=== PATIENT | female | born 1940 | race Caucasian/White ===

== ENCOUNTER 2017-06-28 09:04 | Inpatient (IN) | payer MEDICARE ==
[2017-06-28 09:06] VITALS: BP 87/60; PULSE 128; RESP 14; TEMP 97.5; O2SAT 98
[2017-06-28 09:13] VITALS: BP 136/77; PULSE 120; RESP 13; TEMP 97.4; O2SAT 97
[2017-06-28] MEDS ORDERED: OXYC1CAP PO (09:21)
[2017-06-28] MEDS ORDERED: SODIUM CHLOR 0.9% 1000 ML INJ 1,000 ML IV SCH (09:28)
[2017-06-28] MEDS ORDERED: SODIUM CHLORIDE 0.9% FLUSH 10 ML FLUSH IV FLUSH PRN (09:30)
[2017-06-28] MEDS ORDERED: FAMOTIDINE 20 MG/2 ML VIAL IV PUSH ONE (09:30)
[2017-06-28] MEDS ORDERED: ONDANSETRON HCL 4 MG/2 ML VIAL IVP ONE (09:30)
--- NOTE | 2017-06-28 09:41 | PD ---
HPI Chief Complaint: GI Complaint Time Seen by Provider: 09:19 Travel History International Travel<30 days: No Contact w/Intl Traveler<30days: No Traveled to known affect area: No History of Present Illness HPI Patient is a 76-year-old female who presents to emergency room with complaints of nausea, vomiting and diarrhea as well as lower abdominal pain since week. Patient reports that for the past week, she has been unable to eat or drink, reports that she feels weak. Patient did follow-up with her primary care doctor , Dr. Jessica Vaughn and was instructed to go for outpatient studying including lab work and CT of the abdomen and pelvis with contrast. Patient has not gone for outpatient studies yet. Patient's family who is at bedside reports that they went to check up on patient last night and patient appeared to be frail and has also appeared to have lost alot of weight. Daughter did attempt to give patient some pedialyte last night which she was able to keep down. Patient does live at home by herself, family reports concern as patient is stubborn and will not give full history and will not be honest about how she is feeling. Patient denies any chest pain or shortness breath at this time. Patient denies any fevers or chills. Patient did have history of uterine cancer with hysterectomy in 1986. PFSH Past Medical History Cancer: Yes (UTERINE) Hypertension: Yes Past Surgical History Hysterectomy: Yes Social History Alcohol Use: No Tobacco Use: No Substance Use: No Allergies-Medications (Allergen,Severity, Reaction): Coded Allergies: meperidine (Verified Allergy, Unknown, 06/28/17) Reported Meds & Prescriptions Reported Meds & Active Scripts Active Reported Oxycodone (Oxycodone HCl) 5 Mg Cap 5 Mg PO Q4H PRN Review of Systems General / Constitutional: No: Fever Eyes: No: Visual changes HENT: No: Headaches Cardiovascular: No: Chest Pain or Discomfort Respiratory: No: Shortness of Breath Gastrointestinal: Positive: Nausea, Vomiting, Diarrhea, Abdominal Pain Genitourinary: No: Dysuria Musculoskeletal: No: Pain Skin: No Rash Neurologic: No: Weakness Psychiatric: No: Depression Endocrine: No: Polydipsia Hematologic/Lymphatic: No: Easy Bruising Physical Exam Narrative GENERAL: moderate distress SKIN: Focused skin assessment warm/dry. HEAD: Atraumatic. Normocephalic. EYES: Pupils equal and round. No scleral icterus. No injection or drainage. ENT: No nasal bleeding or discharge. Mucous membranes pink and moist. NECK: Trachea midline. No JVD. CARDIOVASCULAR: Tachycardia. No murmur appreciated. RESPIRATORY: No accessory muscle use. Clear to auscultation. Breath sounds equal bilaterally. GASTROINTESTINAL: Abdomen soft, non-tender, nondistended. Hepatic and splenic margins not palpable. MUSCULOSKELETAL: No obvious deformities. No clubbing. No cyanosis. No edema. NEUROLOGICAL: Awake and alert. No obvious cranial nerve deficits. Motor grossly within normal limits. Normal speech. PSYCHIATRIC: Flat mood and affect; insight and judgment normal. Data Data Last Documented VS Vital Signs Date Time Temp Pulse Resp B/P (MAP) Pulse Ox O2 Delivery O2 Flow Rate FiO2 06/28/17 10:26 98 Room Air 06/28/17 09:13 97.4 120 13 Orders Orders Complete Blood Count With Diff (06/28/17:28) Comprehensive Metabolic Panel (06/28/17:) Lipase (06/28/17:28) Prothrombin Time / Inr (Pt) (06/28/17:28) Act Partial Throm Time (Ptt) (06/28/17:28) Urinalysis - C+S If Indicated (06/28/17:) Iv Access Insert/Monitor (06/28/17:28) Ecg Monitoring (06/28/17:28) Oximetry (06/28/17:28) NPO (06/28/17:28) Ondansetron Inj (Zofran Inj) (06/28/17 09:30) Sodium Chlor 0.9% 1000 Ml Inj (Ns 1000 M (06/28/17 09:28) Sodium Chloride 0.9% Flush (Ns Flush) (06/28/17 09:30) Electrocardiogram (06/28/17:28) Chest, Single Ap (06/28/17:28) Famotidine Inj (Pepcid Inj) (06/28/17 09:30) Sodium Chlor 0.9% 1000 Ml Inj (Ns 1000 M (06/28/17 11:30) Vancomycin Inj (Vancomycin Inj) (06/28/17 11:25) Aztreonam Inj (Azactam Inj) (06/28/17 11:25) Metronidazole 500 Mg Inj (Flagyl 500 Mg (06/28/17 11:25) Lactic Acid Sepsis Protocol (06/28/17 11:26) Blood Culture (06/28/17 11:26) Vascular Access Team Consult/P PRN (06/28/17 11:49) Vascular Poc Ultrasound (06/28/17 ) Ct Abd/Pel W/O Iv Contrast (06/28/17 13:22) Urine Culture (06/28/17 14:40) Admit Order (Ed Use Only) (06/28/17 15:14) Labs Laboratory Tests Test 06/28/17 09:40 06/28/17 11:40 06/28/17 14:40 White Blood Count 23.6 TH/MM3 Red Blood Count 5.63 MIL/MM3 Hemoglobin 15.9 GM/DL Hematocrit 48.2 % Mean Corpuscular Volume 85.7 FL Mean Corpuscular Hemoglobin 28.3 PG Mean Corpuscular Hemoglobin Concent 33.0 % Red Cell Distribution Width 15.0 % Platelet Count 430 TH/MM3 Mean Platelet Volume 9.3 FL Neutrophils (%) (Auto) 88.8 % Lymphocytes (%) (Auto) 6.0 % Monocytes (%) (Auto) 5.1 % Eosinophils (%) (Auto) 0.1 % Basophils (%) (Auto) 0.0 % Neutrophils # (Auto) 21.0 TH/MM3 Lymphocytes # (Auto) 1.4 TH/MM3 Monocytes # (Auto) 1.2 TH/MM3 Eosinophils # (Auto) 0.0 TH/MM3 Basophils # (Auto) 0.0 TH/MM3 CBC Comment AUTO DIFF Differential Total Cells Counted 100 Neutrophils % (Manual) 60 % Band Neutrophils % 22 % Lymphocytes % 6 % Monocytes % 11 % Neutrophils # (Manual) 19.6 TH/MM3 Metamyelocytes 1 % Differential Comment FINAL DIFF MANUAL Toxic Granulation 1+ Toxic Vacuolation PRESENT Platelet Estimate NORMAL Platelet Morphology Comment NORMAL Prothrombin Time 20.9 SEC Prothromb Time International Ratio 1.8 RATIO Activated Partial Thromboplast Time 25.8 SEC Blood Urea Nitrogen 67 MG/DL Creatinine 1.92 MG/DL Random Glucose 65 MG/DL Total Protein 7.2 GM/DL Albumin 2.8 GM/DL Calcium Level 9.1 MG/DL Alkaline Phosphatase 198 U/L Aspartate Amino Transf (AST/SGOT) 35 U/L Alanine Aminotransferase (ALT/SGPT) 29 U/L Total Bilirubin 0.6 MG/DL Sodium Level 128 MEQ/L Potassium Level 3.5 MEQ/L Chloride Level 90 MEQ/L Carbon Dioxide Level 21.8 MEQ/L Anion Gap 16 MEQ/L Estimat Glomerular Filtration Rate 25 ML/MIN Lactic Acid Level 2.1 mmol/L Lipase 89 U/L Urine Color YELLOW Urine Turbidity HAZY Urine pH 5.5 Urine Specific [place] 1.017 Urine Protein 30 mg/dL Urine Glucose (UA) NEG mg/dL Urine Ketones 10 mg/dL Urine Occult Blood NEG Urine Nitrite NEG Urine Bilirubin NEG Urine Urobilinogen LESS THAN 2.0 MG/DL Urine Leukocyte Esterase LARGE Urine RBC 3 /hpf Urine WBC 18 /hpf Urine Squamous Epithelial Cells 1 /hpf Urine Bacteria RARE /hpf Urine Hyaline Casts 3 /lpf Microscopic Urinalysis Comment CULTURE INDICATED MDM Medical Decision Making Medical Screen Exam Complete: Yes Emergency Medical Condition: Yes Medical Record Reviewed: Yes Interpretation(s) EKG at 1022: Sinus tach at 110bpm, qt/qtc: 347/412, no acute st or t wave changes Vital Signs Date Time Temp Pulse Resp B/P (MAP) Pulse Ox O2 Delivery O2 Flow Rate FiO2 06/28/17 09:13 97.4 120 13 136/77 (96) 97 Room Air 06/28/17 09:06 97.5 128 14 87/60 (69) 98 Differential Diagnosis Differential includes dehydration, electrolyte abnormality, colitis, small bowel obstruction, UTI, gastroenteritis Narrative Course 76-year-old female presents to emergency room with complaints of abdominal pain with nausea, vomiting and diarrhea for the past week. Patient was supposed to follow up for her outpatient blood work as well as radiology studies ordered by her primary care doctor, she has not gone for the studies yet. Patient was found by her son and daughter last night dehydrated and weak and cachetic appearing. Patient is tachycardic on evaluation, she has significant lower abdominal pain. Patient was placed on a instructor bus trolley and taxi upon arrival to the emergency room. IV was ordered, IV fluids ordered as well as antiemetics. CT of abdomen and pelvis with IV contrast ordered Vital Signs Date Time Temp Pulse Resp B/P (MAP) Pulse Ox O2 Delivery O2 Flow Rate FiO2 06/28/17 10:26 98 Room Air 06/28/17 09:13 97.4 120 13 136/77 (96) 97 Room Air 06/28/17 09:06 97.5 128 14 87/60 (69) 98 CBC & BMP Diagram 06/28/17 09:40 Patient with tachycardia, white blood cell count 23.6, will panculture patient and obtain lactic acid as patient meets SIRS criteria. IVF ordered as patient was hypotensive upon initial presentation to the ER. IV antibiotics ordered as well. Azactam, vancomycin and Flagyl ordered as source of infection is most likely abdominal source. Last Impressions Chest X-Ray 06/28/17927 Signed Impressions: Service Date/Time: Wednesday, June 28, 2017 09:56 - CONCLUSION: 1. No acute cardiopulmonary disease. 2. Increased subdiaphragmatic lucency on the left may reflect air in the stomach although the gastric contours are not definitely visualized. CT abdomen is scheduled and this can be further evaluated on that exam. Jay Helton MD case reviewed with dr. hagen who accepts pt to service Diagnosis Primary Impression: Sepsis Additional Impressions: Small bowel obstruction Renal failure UTI (urinary tract infection) Admitting Information Admitting Physician Requests: Admit Geneva Elkins DO Jun 28, 2017 09:41
[2017-06-28 10:17] LABS: EOSINOPHIL % 0.1 % (0.0-4.0); HEMATOCRIT 48.2 % (35.0-46.0); LYMPHOCYTE # 1.4 TH/MM3 (1.0-4.8); MEAN CELL VOLUME 85.7 FL (80.0-100.0); MEAN CORPUSCULAR HEMOGLOBIN 28.3 PG (27.0-34.0); MONO % 5.1 % (0.0-8.0); NEUT % 88.8 % (16.0-70.0); PLATELET COUNT 430 TH/MM3 (150-450); RED BLOOD COUNT 5.63 MIL/MM3 (4.00-5.30); WHITE BLOOD COUNT 23.6 TH/MM3 (4.0-11.0)
[2017-06-28 10:19] LABS: APTT (PATIENT) 25.8 SEC (24.3-30.1); HEMO FLAGS AUTO DIFF; INTERNATIONAL NORMALIZED RATIO 1.8 RATIO; PROTHROMBIN TIME - PATIENT 20.9 SEC (9.8-11.6)
[2017-06-28 10:26] VITALS: O2SAT 98
--- NOTE | 2017-06-28 10:48 | RADRPT ---
EXAM DATE/TIME: 06/28/2017 09:56 [facility] COMPARISON: No previous studies available for comparison. INDICATIONS : Upper abdomen pain across diaphrams. MEDICAL HISTORY : Uterine cancer SURGICAL HISTORY : Hysterectomy. ENCOUNTER: Initial ACUITY: 3 days PAIN SCORE: 10/10 LOCATION: Bilateral chest FINDINGS: Lungs are clear. Cardiomediastinal contours are within normal limits. Degenerative changes noted abou t the shoulders and in the thoracic spine. Increased lucency below the left hemidiaphragm may reflect air in the stomach although gastric contours not definitively visualized. CONCLUSION: 1. No acute cardiopulmonary disease. 2. Increased subdiaphragmatic lucency on the left may reflect air in the stomach although the gastric contours are not definitely visualized. CT abdomen is scheduled and this can be further evaluated on that exam. Jay Helton MD on June 28, 2017 at 10:44 Board Certified Radiologist. This report was verified electronically.
[2017-06-28 10:58] LABS: BANDS 22 % (0-6); METAMYELOCYTES 1 % (0-1); NEUTROPHIL # MANUAL DIFF 19.6 TH/MM3 (1.8-7.7); PLATELET ESTIMATE SMEAR NORMAL (NORMAL); PLATELET MORPHOLOGY NORMAL (NORMAL); POLYS (SEG NEUTROPHILS) 60 % (16-70); SCAN/DIFF FINAL DIFF MANUAL; TOXIC GRANULATION 1+ (NORMAL); TOXIC VACUOLATION PRESENT (NONE SEEN); WBC DIFF SAMPLE 100
[2017-06-28] MEDS ORDERED: metroNIDAZOLE 500 MG INJ 100 ML IV STA (11:25)
[2017-06-28] MEDS ORDERED: VANCOMYCIN INJ 1,000 MG in SODIUM CHLOR 0.9% 250 ML INJ 250 ML IV STA (11:25)
[2017-06-28] MEDS ORDERED: AZTREONAM INJ 2,000 MG in SODIUM CHLORIDE 0.9% INJ 100 ML IV STA (11:25)
[2017-06-28] MEDS ORDERED: SODIUM CHLOR 0.9% 1000 ML INJ 1,000 ML IV ONE (11:30)
--- NOTE | 2017-06-28 12:29 | EKG ---
Date Performed: 06/28/2017 Time Performed: 10:22:02 PTAGE: 76 years EKG: SINUS TACHYCARDIA POSSIBLE LEFT ATRIAL ENLARGEMENT ABNORMAL RHYTHM ECG NO PREVIOUS TRACING DOCTOR: Perez Saeed Interpretating Date/Time 06/28/2017 12:27:16
[2017-06-28 12:57] LABS: ALT (GPT) 29 U/L (10-53)
[2017-06-28 13:00] LABS: ALKALINE PHOSPHATASE 198 U/L (45-117); TOTAL BILIRUBIN ADULT 0.6 MG/DL (0.2-1.0)
[2017-06-28 13:11] LABS: ANION GAP 16 MEQ/L (5-15); AST (GOT) 35 U/L (15-37); BICARBONATE 21.8 MEQ/L (21.0-32.0); BLOOD UREA NITROGEN 67 MG/DL (7-18); CHLORIDE 90 MEQ/L (98-107); GLOMERULAR FILTRATION RATE 25 ML/MIN (>89); POTASSIUM 3.5 MEQ/L (3.5-5.1); SODIUM (NA) 128 MEQ/L (136-145)
[2017-06-28 14:22] LABS: LACTIC ACID GHOST NOT REPORTABLE
--- NOTE | 2017-06-28 14:47 | RADRPT ---
EXAM DATE/TIME: 06/28/2017 14:00 [facility] COMPARISON: No previous studies available for comparison. INDICATIONS : Abdomen pain ORAL CONTRAST: No oral contrast ingested. RADIATION DOSE: 6.65 CTDIvol (mGy) MEDICAL HISTORY : Hypertension. Uterine cancer SURGICAL HISTORY : Hysterectomy. ENCOUNTER: Initial ACUITY: 1 day PAIN SCALE: 5/10 LOCATION: Abdomen TECHNIQUE: Volumetric scanning of the abdomen and pelvis was performed. Using automated exposure control and adjustment of the mA and/or kV according to patient size, radiation dose was kept as low as reasonably achievable to obtain optimal diagnostic quality images. DICOM format image data is av ailable electronically for review and comparison. FINDINGS: Lung bases are clear. Marked scoliosis is noted distorting the intraabdominal contents . Multiple noncalcified gallstones are noted. The liver and spleen are grossly normal. Pancreas, ad renals and kidneys are poorly seen with lack of intravenous and oral contrast. There is no ascites. There is no free air. There is moderate dilatation of distal small bowel when compared to proximal with the distal small mandeep wel dilated into the pelvis. I do not see a clear zone of transition. In the pelvis scattered stool is seen in the colon. There is no free fluid. Extensive degenerative changes are present secondary to the scoliosis. CONCLUSION: 1. Abnormal small bowel gas pattern. This could be a partial obstruction. 2. Extensive vascular calcifications are noted. 3. There is no free air. 4. Multiple gallstones in a benign-appearing gallbladder. 5. Lack of intravenous and oral contrast makes detection of subtle abnormalities difficult Krishan Jim MD FACR on June 28, 2017 at 14:34 Board Certified Radiologist. This report was verified electronically.
[2017-06-28 15:15] LABS: BACTERIA, URINE RARE /hpf; BLOOD, URINE NEG (NEG); COMMENT (UR) CULTURE INDICATED; CULTURE IF INDICATED CULTURE INDICATED; GLUCOSE,URINE NEG (NEG); HYALINE CAST, URINE 3 /lpf (RARE); KETONE, URINE 10 mg/dL (NEG); NITRITE,URINE NEG (NEG); PH, URINE 5.5 (5.0-8.5); SQUAMOUS EPITHELIAL CELL URINE 1 /hpf (0-5); URINE COLOR YELLOW (YELLW/STRAW)
[2017-06-28] MEDS ORDERED: LORazepam 2 MG/ML VIAL IV PUSH ONE (16:00)
[2017-06-28] MEDS ORDERED: ACETAMINOPHEN 325 MG TAB PO PRN (16:15)
[2017-06-28] MEDS ORDERED: ONDANSETRON HCL 4 MG/2 ML VIAL IV PRN (16:15)
--- NOTE | 2017-06-28 16:43 | HHI.HP ---
HPI Service [facility] Primary Care Physician Dr. Jessica Marquez Admission Diagnosis Sepsis, Small bowel obstruction Chief Complaint: N/V/D/abd pain Travel History International Travel<30 Days: No Contact w/Intl Traveler <30 Da: No Traveled to Known Affected Are: No History of Present Illness Ms. Rose is a 76 y/o female with GERD, depression, and ADHD who presented to the ED at [facility] [place] on 06/28/17 with complaints of nausea, vomiting, diarrhea as well as lower abdominal pain that began last 06/23/17. Patient reports that for the past week, she has been unable to eat or drink much due to the nausea/vomiting, and has had progressive weakness. Patient reportedly contacted her primary care doctor, Dr. Jessica Vaughn and was instructed to go for outpatient lab work and CT of the abdomen and pelvis with contrast but pt has been unable to have these outpatient studies done yet. Per the ED report , the patient's family reportedly went to check up on patient last night and she appeared to be frail and had appeared to have lost a lot of weight. Daughter did attempt to give patient some Pedialyte which she was able to keep down a small amount. Patient does live at home by herself, family reported concern as patient will apparently down play her symptoms and not give full history about how she is feeling. Pt reportedly very agitated in the ED and was given Ativan. Currently pt very lethargic and in restraints. Pt unable to provide any history. Attempted to call the pts daughter and son at the number sin the chart but no answer. Labs in the ED noted elevated WBC count 23.6, elevated Hgb 15.9 and Hct 48.2 likely some degree of hemoconcentration. She is notably dehydrated with YISSEL and an elevated Lactic acid. Pt was given 2L of IVF in the ED as she was noted to be hypotensive. She was also given IV Flagyl, Azactam, and Vancomycin in the ED. Noncontrasted CT Abd/pelvis in the ED noted abnormal small bowel gas pattern, ?partial obstruction, extensive vascular calcifications, no free air, and multiple gallstones in a benign appearing gallbladder. Pts LFTs were for the most part WNL other than AlkPhos was elevated at 198, Lipase was 89. Review of Systems Constitutional: COMPLAINS OF: Change in appetite, DENIES: Fever, Chills Gastrointestinal: COMPLAINS OF: Abdominal pain, Diarrhea, Nausea, Vomiting, DENIES: Black stools, Bloody stools Past Family Social History Past Medical History GERD Depression ADHD ?HTN Hx of dysphagia Hx of choledocholithiasis Hx of colon polyps Hx of uterine cancer 2D Echo (01/09/2016): - Estimated EF 50-55% - Grade 1 diastolic dysfunction - Diffuse calcification of the aortic valve, trace regurg - Mild aortic valve stenosis, meal gradient 8mmHg - Mild tricuspid valve regurg - Estimated PA pressure 39.4mmHg Past Surgical History Hysterectomy Tubal ligation D&C EGD with dilation (03/30/2016) --> gastritis, distal esophagitis as spasm in the distal esophagus, small hiatal hernia. Flex Sig (02/22/2012) --> Diminutive polyps in the rectum, hemorrhoids, decreased sphincter tone, perianal skin tags, and small external hemorrhoids Incomplete colonoscopy (12/29/10) --> Incomplete due top tortuous colon, small internal hemorrhoids Reported Medications Oxycodone (Oxycodone HCl) 5 Mg Cap 5 Mg PO Q4H PRN ?Buproprion 150Mg PO DAILY ?Omeprazole 20mg PO DAILY Allergies: Coded Allergies: meperidine (Verified Allergy, Unknown, 06/28/17) Family History Noncontributory Social History Denies any alcohol, tobacco or illicit drug use Physical Exam Vital Signs Vital Signs Date Time Temp Pulse Resp B/P (MAP) Pulse Ox O2 Delivery O2 Flow Rate FiO2 06/28/17 10:26 98 Room Air 06/28/17 09:13 97.4 120 13 136/77 (96) 97 Room Air 06/28/17 09:06 97.5 128 14 87/60 (69) 98 Physical Exam GENERAL: Thin elderly female in NAD, in restrains, lethargic HEENT: Atraumatic. Normocephalic. No temporal or scalp tenderness.No scleral icterus. Airway patent. NECK: Trachea midline, supple, nontender. CARDIO: Regular, tachy RESP: CTA bilaterally. No wheezes, rales, or rhonchi. ABD: +BS, soft, RLQ tenderness, nondistended. Voluntary guarding. EXT: Extremities without clubbing, cyanosis, or edema. NEURO: Lethargic, in restraints Laboratory Laboratory Tests Test 06/28/17 09:40 06/28/17 11:40 06/28/17 14:40 06/28/17 16:00 White Blood Count 23.6 Red Blood Count 5.63 Hemoglobin 15.9 Hematocrit 48.2 Mean Corpuscular Volume 85.7 Mean Corpuscular Hemoglobin 28.3 Mean Corpuscular Hemoglobin Concent 33.0 Red Cell Distribution Width 15.0 Platelet Count 430 Mean Platelet Volume 9.3 Neutrophils (%) (Auto) 88.8 Lymphocytes (%) (Auto) 6.0 Monocytes (%) (Auto) 5.1 Eosinophils (%) (Auto) 0.1 Basophils (%) (Auto) 0.0 Neutrophils # (Auto) 21.0 Lymphocytes # (Auto) 1.4 Monocytes # (Auto) 1.2 Eosinophils # (Auto) 0.0 Basophils # (Auto) 0.0 CBC Comment AUTO DIFF Differential Total Cells Counted 100 Neutrophils % (Manual) 60 Band Neutrophils % 22 Lymphocytes % 6 Monocytes % 11 Neutrophils # (Manual) 19.6 Metamyelocytes 1 Differential Comment FINAL DIFF MANUAL Toxic Granulation 1+ Toxic Vacuolation PRESENT Platelet Estimate NORMAL Platelet Morphology Comment NORMAL Prothrombin Time 20.9 Prothromb Time International Ratio 1.8 Activated Partial Thromboplast Time 25.8 Blood Urea Nitrogen 67 Creatinine 1.92 Random Glucose 65 Total Protein 7.2 Albumin 2.8 Calcium Level 9.1 Alkaline Phosphatase 198 Aspartate Amino Transf (AST/SGOT) 35 Alanine Aminotransferase (ALT/SGPT) 29 Total Bilirubin 0.6 Sodium Level 128 Potassium Level 3.5 Chloride Level 90 Carbon Dioxide Level 21.8 Anion Gap 16 Estimat Glomerular Filtration Rate 25 Lactic Acid Level 2.1 Lipase 89 Urine Color YELLOW Urine Turbidity HAZY Urine pH 5.5 Urine Specific [place] 1.017 Urine Protein 30 Urine Glucose (UA) NEG Urine Ketones 10 Urine Occult Blood NEG Urine Nitrite NEG Urine Bilirubin NEG Urine Urobilinogen LESS THAN 2.0 Urine Leukocyte Esterase LARGE Urine RBC 3 Urine WBC 18 Urine Squamous Epithelial Cells 1 Urine Bacteria RARE Urine Hyaline Casts 3 Microscopic Urinalysis Comment CULTURE INDICATED Date/Time Source Procedure Growth Status 06/28/17 11:40 Blood Peripheral Aerobic Blood Culture Pending Received 06/28/17 11:40 Blood Peripheral Anaerobic Blood Culture Pending Received 06/28/17 14:40 Urine Clean Catch Urine Culture Pending Received Result Diagram: 06/28/17 0940 06/28/17 1140 Imaging Last Impressions Chest X-Ray 06/28/17 0928 Signed Impressions: Service Date/Time: Wednesday, June 28, 2017 09:56 - CONCLUSION: 1. No acute cardiopulmonary disease. 2. Increased subdiaphragmatic lucency on the left may reflect air in the stomach although the gastric contours are not definitely visualized. CT abdomen is scheduled and this can be further evaluated on that exam. Jay Helton MD Septic Shock Reassessment Heart: Regular rate and rhythm Lungs: Clear Caprini VTE Risk Assessment Caprini VTE Risk Assessment: Mod/High Risk (score >= 2) Caprini Risk Assessment Model Point Value = 1 Point Value = 2 Point Value = 3 Point Value = 5 Age 41-60 Minor surgery BMI > 25 kg/m2 Swollen legs Varicose veins or History of unexplained or recurrent spontaneous Oral contraceptives or hormone replacement Sepsis (< 1 month) Serious lung disease, including pneumonia (< 1 month) Abnormal pulmonary function Acute myocardial infarction Congestive heart failure (< 1 month) History of inflammatory bowel disease Medical patient at bed rest Age 61-74 Arthroscopic surgery Major open surgery (> 45 min) Laparoscopic surgery (> 45 min) Malignancy Confined to bed (> 72 hours) Immobilizing plaster cast Central venous access Age >= 75 History of VTE Family history of VTE Factor V Leiden Prothrombin [id number] Lupus anticoagulant Anticardiolipin antibodies Elevated serum homocysteine Heparin-induced thrombocytopenia Other congenital or acquired thrombophilia Stroke (< 1 month) Elective arthroplasty Hip, pelvis, or leg fracture Acute spinal cord injury (< 1 month) Prophylaxis Regimen Total Risk Factor Score Risk Level Prophylaxis Regimen 0-1 Low Early ambulation 2 Moderate Order ONE of the following: *Sequential Compression Device (SCD) *Heparin 5000 units SQ BID 3-4 Higher Order ONE of the following medications: *Heparin 5000 units SQ TID *Enoxaparin/Lovenox 40 mg SQ daily (WT < 150 kg, CrCl > 30 mL/min) *Enoxaparin/Lovenox 30 mg SQ daily (WT < 150 kg, CrCl > 10-29 mL/min) *Enoxaparin/Lovenox 30 mg SQ BID (WT < 150 kg, CrCl > 30 mL/min) AND/OR *Sequential Compression Device (SCD) 5 or more Highest Order ONE of the following medications: *Heparin 5000 units SQ TID (Preferred with Epidurals) *Enoxaparin/Lovenox 40 mg SQ daily (WT < 150 kg, CrCl > 30 mL/min) *Enoxaparin/Lovenox 30 mg SQ daily (WT < 150 kg, CrCl > 10-29 mL/min) *Enoxaparin/Lovenox 30 mg SQ BID (WT < 150 kg, CrCl > 30 mL/min) AND *Sequential Compression Device (SCD) Assessment and Plan Problem List: (1) Abdominal pain ICD Codes: R10.9 - Unspecified abdominal pain Status: Acute Plan: - Pt is a 76 y/o female with GERD, depression, and ADHD who presented to the ED at [facility] [place] on 06/28/17 with complaints of nausea, vomiting, diarrhea as well as lower abdominal pain that began last 06/23/17. Pt has had poor po intake over the last week as well. - Pt was reportedly very agitated in the ED and was given Ativan. Currently pt very lethargic and in restraints. Pt unable to provide any history. - Attempted to call the pts daughter and son at the number sin the chart but no answer at all the numbers provided. - Labs in the ED noted elevated WBC count 23.6, elevated Hgb 15.9 and Hct 48.2 likely some degree of hemoconcentration. She is notably dehydrated with YISSEL and an elevated Lactic acid. - Pt was given 2L of IVF in the ED as she was noted to be hypotensive and her BP has improved. - She was also given IV Flagyl, Azactam, and Vancomycin in the ED. - Noncontrasted CT Abd/pelvis in the ED noted abnormal small bowel gas pattern, ?partial obstruction, extensive vascular calcifications, no free air, and multiple gallstones in a benign appearing gallbladder. Pts LFTs were for the most part WNL other than AlkPhos was elevated at 198, Lipase was 89. - Pt with significant RLQ tenderness on examination. Reviewed the CT with Dr. Devlin and there was no specific evidence indicating appendicitis. - Consult General Surgery, case discussed with Dr. Melo - Place NGT to LIWS - Cont. ABX with Zosyn - IVF - Zofran PRN - Supportive care - Further recs as the case develops - DVT prophylaxis with SCDs (2) Nausea vomiting and diarrhea ICD Codes: R11.2 - Nausea with vomiting, unspecified; R19.7 - Diarrhea, unspecified Status: Acute Plan: - See above. (3) Dehydration ICD Codes: E86.0 - Dehydration Status: Acute Plan: - See above (4) YISSEL (acute kidney injury) ICD Codes: N17.9 - Acute kidney failure, unspecified Status: Acute Plan: - See above. Assessment and Plan Patient examined. Assessment and plan formulated with Geneva Rodriguez PA-C. I agree with the above. Geneva Rodriguez Jun 28, 2017 16:43 Zachary Menendez DO Jul 03, 2017 23:38
[2017-06-28] MEDS: NS + KCL 20 MEQ INJ 1,000 ML IV SCH ×2 (17:00→18:32)
[2017-06-28] MEDS ORDERED: PANTOPRAZOLE SODIUM 40 MG VIAL IV PUSH SCH (17:00)
[2017-06-28 17:06] VITALS: BP 129/78; PULSE 107; RESP 15; O2SAT 98
[2017-06-28 20:00] VITALS: BP 109/55; PULSE 125; RESP 18; TEMP 97.4; O2SAT 94
[2017-06-28 20:13] VITALS: PULSE 128
--- NOTE | 2017-06-28 20:21 | PD.CONS ---
HPI Service General Surgery Consult Requested By Dr. Menendez Reason for Consult SBO Primary Care Physician Non-Staff History of Present Illness 76-year-old female with apparent partial bowel obstruction. She is unable to give me any history from her son is at the bedside. History is also obtained from the chart. Her son states that last week she began to develop nausea vomiting and inability to tolerate oral intake as well as abdominal pain. She progressively worsened. She is your primary care physician and was scheduled to have some tests today but presented to the emergency department instead. Her past surgical history includes hysterectomy for uterine cancer about 30 years ago. He says he is usually aware and conversant. She often uses a cane or walker for ambulation. Review of Systems ROS Limitations: Clinical Condition, Altered Mental Status Past Family Social History Past Medical History GERD Depression ADHD ?HTN Hx of dysphagia Hx of choledocholithiasis Hx of colon polyps Hx of uterine cancer Past Surgical History Hysterectomy Tubal ligation Reported Medications Reported Meds & Active Scripts Active Reported Oxycodone (Oxycodone HCl) 5 Mg Cap 5 Mg PO Q4H PRN Allergies: Coded Allergies: meperidine (Verified Allergy, Unknown, 06/28/17) Active Ordered Medications Current Medications Medications (Trade) Dose Ordered Sig/Elis Route Start Time Stop Time Status Last Admin (NS Flush) 2 ml UNSCH PRN IV FLUSH 06/28/17 09:30 Potassium Chloride/Sodium Chloride 1,000 ml @ 84 mls/hr [id number] IV 06/28/17 17:00 06/28/17 18:32 (Tylenol) 650 mg Q4H PRN PO 06/28/17 16:15 (Zofran Inj) 4 mg Q6H PRN IV 06/28/17 16:15 (Protonix Inj) 40 mg Q24H IV PUSH 06/28/17 17:00 06/28/17 18:32 Piperacillin Sod/ Tazobactam Sod 50 ml @ 100 mls/hr Q8H IV 06/28/17 20:00 Family History Noncontributory Social History No alcohol tobacco or drug use. Physical Exam Vital Signs Vital Signs Date Time Temp Pulse Resp B/P (MAP) Pulse Ox O2 Delivery O2 Flow Rate FiO2 06/28/17 17:06 107 15 129/78 (95) 98 Room Air 06/28/17 10:26 98 Room Air 06/28/17 09:13 97.4 120 13 136/77 (96) 97 Room Air 06/28/17 09:06 97.5 128 14 87/60 (69) 98 Physical Exam GENERAL: Frail. Eyes open and looking around but not conversant. HEAD: Normocephalic. Atraumatic. EYES: Pupils equal round and reactive to light bilaterally. No scleral icterus. ENT: Dry oral mucosa. CHEST: Lungs clear to auscultation bilaterally with no wheezing or rhonchi. No respiratory distress. CARDIOVASCULAR: Sinus tachycardia ABDOMEN: Well-healed lower midline incision. Moderate distention. Mild diffuse tenderness with severe tenderness to palpation in the right lower quadrant. EXTREMITIES: No cyanosis or edema. SKIN: Warm, dry, nonjaundiced. Laboratory Laboratory Tests Test 06/28/17 09:40 06/28/17 11:40 06/28/17 14:40 06/28/17 16:00 White Blood Count 23.6 Red Blood Count 5.63 Hemoglobin 15.9 Hematocrit 48.2 Mean Corpuscular Volume 85.7 Mean Corpuscular Hemoglobin 28.3 Mean Corpuscular Hemoglobin Concent 33.0 Red Cell Distribution Width 15.0 Platelet Count 430 Mean Platelet Volume 9.3 Neutrophils (%) (Auto) 88.8 Lymphocytes (%) (Auto) 6.0 Monocytes (%) (Auto) 5.1 Eosinophils (%) (Auto) 0.1 Basophils (%) (Auto) 0.0 Neutrophils # (Auto) 21.0 Lymphocytes # (Auto) 1.4 Monocytes # (Auto) 1.2 Eosinophils # (Auto) 0.0 Basophils # (Auto) 0.0 CBC Comment AUTO DIFF Differential Total Cells Counted 100 Neutrophils % (Manual) 60 Band Neutrophils % 22 Lymphocytes % 6 Monocytes % 11 Neutrophils # (Manual) 19.6 Metamyelocytes 1 Differential Comment FINAL DIFF MANUAL Toxic Granulation 1+ Toxic Vacuolation PRESENT Platelet Estimate NORMAL Platelet Morphology Comment NORMAL Prothrombin Time 20.9 Prothromb Time International Ratio 1.8 Activated Partial Thromboplast Time 25.8 Blood Urea Nitrogen 67 Creatinine 1.92 Random Glucose 65 Total Protein 7.2 Albumin 2.8 Calcium Level 9.1 Alkaline Phosphatase 198 Aspartate Amino Transf (AST/SGOT) 35 Alanine Aminotransferase (ALT/SGPT) 29 Total Bilirubin 0.6 Sodium Level 128 Potassium Level 3.5 Chloride Level 90 Carbon Dioxide Level 21.8 Anion Gap 16 Estimat Glomerular Filtration Rate 25 Lactic Acid Level 2.1 0.8 Lipase 89 Urine Color YELLOW Urine Turbidity HAZY Urine pH 5.5 Urine Specific [place] 1.017 Urine Protein 30 Urine Glucose (UA) NEG Urine Ketones 10 Urine Occult Blood NEG Urine Nitrite NEG Urine Bilirubin NEG Urine Urobilinogen LESS THAN 2.0 Urine Leukocyte Esterase LARGE Urine RBC 3 Urine WBC 18 Urine Squamous Epithelial Cells 1 Urine Bacteria RARE Urine Hyaline Casts 3 Microscopic Urinalysis Comment CULTURE INDICATED Date/Time Source Procedure Growth Status 06/28/17 11:40 Blood Peripheral Aerobic Blood Culture Pending Received 06/28/17 11:40 Blood Peripheral Anaerobic Blood Culture Pending Received 06/28/17 14:40 Urine Clean Catch Urine Culture Pending Received Result Diagram: 06/28/17 0940 06/28/17 1140 Imaging Last Impressions Abdomen/Pelvis CT 06/28/17 1322 Signed Impressions: Service Date/Time: Wednesday, June 28, 2017 14:00 - CONCLUSION: 1. Abnormal small bowel gas pattern. This could be a partial obstruction. 2. Extensive vascular calcifications are noted. 3. There is no free air. 4. Multiple gallstones in a benign-appearing gallbladder. 5. Lack of intravenous and oral contrast makes detection of subtle abnormalities difficult Krishan Jim MD FACR Chest X-Ray 06/28/17 0930 Signed Impressions: Service Date/Time: Wednesday, June 28, 2017 09:56 - CONCLUSION: 1. No acute cardiopulmonary disease. 2. Increased subdiaphragmatic lucency on the left may reflect air in the stomach although the gastric contours are not definitely visualized. CT abdomen is scheduled and this can be further evaluated on that exam. Jay Helton MD Assessment and Plan Assessment and Plan 76 yo F with SBO, sepsis. NG tube placed at bedside by myself with at least 800 cc out initially of dark green fluid. Case discussed with Dr. Arita of radiology. The appendix is not visualized and he feels that she has a partial small bowel obstruction. Recommend repeat imaging in the morning as well as lab work and reevaluation clinically. She may require diagnostic laparoscopy or laparotomy to evaluate and relieve obstruction. Willard Melo MD Jun 28, 2017 20:20
[2017-06-28] MEDS: PIPERACIL-TAZO 3.375 GM PREMIX 50 ML IV SCH (20:34)
--- NOTE | 2017-06-28 20:55 | RADRPT ---
EXAM DATE/TIME: 06/28/2017 20:15 [facility] COMPARISON: No previous studies available for comparison. INDICATIONS : Obstruction. MEDICAL HISTORY : Uterine cancer SURGICAL HISTORY : Hysterectomy. ENCOUNTER: Initial ACUITY: 1 day PAIN SCORE: 10/10 LOCATION: abdomen. FINDINGS: A nasogastric tube is in place with its tip in the stomach. No organomegaly is evident. Moderate scol iotic deformity is present to the left with a rotatory component with the apex at L2. Plain films do not demonstrate small bowel dilatation despite the findings on CT scan. CONCLUSION: Nasogastric tube in the stomach. No obstruction identified 1. Perez Arita MD on June 28, 2017 at 20:46 Board Certified Radiologist. This report was verified electronically.
[2017-06-29] VITALS: BP 134/64; PULSE 111; RESP 18; TEMP 97.4; O2SAT 94
[2017-06-29] MEDS ORDERED: LORazepam 2 MG/ML VIAL IV ONE (02:30)
[2017-06-29 04:00] VITALS: BP 144/58; PULSE 130; RESP 20; TEMP 97.6; O2SAT 95
[2017-06-29] MEDS: PIPERACIL-TAZO 3.375 GM PREMIX 50 ML IV SCH ×2 (04:36→11:10)
[2017-06-29 06:27] LABS: HEMATOCRIT 40.1 % (35.0-46.0); MEAN CELL VOLUME 86.8 FL (80.0-100.0); MEAN CORPUSCULAR HEMOGLOBIN 28.3 PG (27.0-34.0); MEAN CORPUSCULAR HGB CONC 32.6 % (32.0-36.0); PLATELET COUNT 298 TH/MM3 (150-450); RED BLOOD COUNT 4.62 MIL/MM3 (4.00-5.30); RED CELL DISTRIBUTION WIDTH 15.1 % (11.6-17.2)
[2017-06-29 06:28] LABS: HEMO FLAGS AUTO DIFF
[2017-06-29 06:31] LABS: BICARBONATE 16.5 MEQ/L (21.0-32.0); POTASSIUM 3.7 MEQ/L (3.5-5.1)
[2017-06-29] MEDS ORDERED: RAMI10CA PO (06:38)
[2017-06-29] MEDS ORDERED: ADDE20 PO (06:38)
[2017-06-29] MEDS ORDERED: BUPR150T3 PO (06:38)
[2017-06-29 06:40] LABS: WHITE BLOOD COUNT 12.3 TH/MM3 (4.0-11.0)
[2017-06-29 07:46] LABS: BANDS 30 % (0-6); METAMYELOCYTES 1 % (0-1); NEUTROPHIL # MANUAL DIFF 11.7 TH/MM3 (1.8-7.7); POLYS (SEG NEUTROPHILS) 64 % (16-70); WBC DIFF SAMPLE 100
[2017-06-29 07:47] LABS: ACANTHOCYTES 1+ (NORMAL); KERATOCYTES 1+ (NORMAL); OVALOCYTES 1+ (NORMAL); PLATELET ESTIMATE SMEAR NORMAL (NORMAL); PLATELET MORPHOLOGY NORMAL (NORMAL); SCAN/DIFF FINAL DIFF MANUAL
[2017-06-29 08:00] VITALS: BP 112/55; PULSE 130; PULSE 136; RESP 19; TEMP 97.9; O2SAT 92
[2017-06-29 08:08] VITALS: BP 112/55; PULSE 130; RESP 19; TEMP 97.9; O2SAT 90
--- NOTE | 2017-06-29 09:10 | HHI.PR ---
Subjective Subjective Notes She is more alert and conversant but still somewhat confused. Asked if she can go swimming. But also asked about risks of surgery. HR 130. States that her abdominal pain is improved. Objective Vitals/I&O Vital Signs Date Time Temp Pulse Resp B/P (MAP) Pulse Ox O2 Delivery O2 Flow Rate FiO2 06/29/17 08:08 97.9 130 19 112/55 (74) 90 06/28/17 17:06 Room Air Labs Laboratory Tests Test 06/28/17 09:40 06/28/17 11:40 06/28/17 14:40 06/28/17 16:00 White Blood Count 23.6 Red Blood Count 5.63 Hemoglobin 15.9 Hematocrit 48.2 Mean Corpuscular Volume 85.7 Mean Corpuscular Hemoglobin 28.3 Mean Corpuscular Hemoglobin Concent 33.0 Red Cell Distribution Width 15.0 Platelet Count 430 Mean Platelet Volume 9.3 Neutrophils (%) (Auto) 88.8 Lymphocytes (%) (Auto) 6.0 Monocytes (%) (Auto) 5.1 Eosinophils (%) (Auto) 0.1 Basophils (%) (Auto) 0.0 Neutrophils # (Auto) 21.0 Lymphocytes # (Auto) 1.4 Monocytes # (Auto) 1.2 Eosinophils # (Auto) 0.0 Basophils # (Auto) 0.0 CBC Comment AUTO DIFF Differential Total Cells Counted 100 Neutrophils % (Manual) 60 Band Neutrophils % 22 Lymphocytes % 6 Monocytes % 11 Neutrophils # (Manual) 19.6 Metamyelocytes 1 Differential Comment FINAL DIFF MANUAL Toxic Granulation 1+ Toxic Vacuolation PRESENT Platelet Estimate NORMAL Platelet Morphology Comment NORMAL Prothrombin Time 20.9 Prothromb Time International Ratio 1.8 Activated Partial Thromboplast Time 25.8 Blood Urea Nitrogen 67 Creatinine 1.92 Random Glucose 65 Total Protein 7.2 Albumin 2.8 Calcium Level 9.1 Alkaline Phosphatase 198 Aspartate Amino Transf (AST/SGOT) 35 Alanine Aminotransferase (ALT/SGPT) 29 Total Bilirubin 0.6 Sodium Level 128 Potassium Level 3.5 Chloride Level 90 Carbon Dioxide Level 21.8 Anion Gap 16 Estimat Glomerular Filtration Rate 25 Lactic Acid Level 2.1 0.8 Lipase 89 Urine Color YELLOW Urine Turbidity HAZY Urine pH 5.5 Urine Specific [place] 1.017 Urine Protein 30 Urine Glucose (UA) NEG Urine Ketones 10 Urine Occult Blood NEG Urine Nitrite NEG Urine Bilirubin NEG Urine Urobilinogen LESS THAN 2.0 Urine Leukocyte Esterase LARGE Urine RBC 3 Urine WBC 18 Urine Squamous Epithelial Cells 1 Urine Bacteria RARE Urine Hyaline Casts 3 Microscopic Urinalysis Comment CULTURE INDICATED Test 06/29/17 05:25 06/29/17 05:35 Blood Urea Nitrogen 69 Creatinine 1.77 Random Glucose 51 Calcium Level 7.9 Magnesium Level 2.0 Sodium Level 136 Potassium Level 3.7 Chloride Level 105 Carbon Dioxide Level 16.5 Anion Gap 15 Estimat Glomerular Filtration Rate 28 White Blood Count 12.3 Red Blood Count 4.62 Hemoglobin 13.1 Hematocrit 40.1 Mean Corpuscular Volume 86.8 Mean Corpuscular Hemoglobin 28.3 Mean Corpuscular Hemoglobin Concent 32.6 Red Cell Distribution Width 15.1 Platelet Count 298 Mean Platelet Volume 9.2 CBC Comment AUTO DIFF Differential Total Cells Counted 100 Neutrophils % (Manual) 64 Band Neutrophils % 30 Lymphocytes % 4 Monocytes % 1 Neutrophils # (Manual) 11.7 Metamyelocytes 1 Differential Comment FINAL DIFF MANUAL Platelet Estimate NORMAL Platelet Morphology Comment NORMAL Ovalocytes 1+ Acanthocytes 1+ Keratocytes 1+ Date/Time Source Procedure Growth Status 06/28/17 11:40 Blood Peripheral Aerobic Blood Culture Pending Received 06/28/17 11:40 Blood Peripheral Anaerobic Blood Culture Pending Received 06/28/17 14:40 Urine Clean Catch Urine Culture Pending Received Radiology Last Impressions Abdomen/Pelvis CT 06/28/17 1322 Signed Impressions: Service Date/Time: Wednesday, June 28, 2017 14:00 - CONCLUSION: 1. Abnormal small bowel gas pattern. This could be a partial obstruction. 2. Extensive vascular calcifications are noted. 3. There is no free air. 4. Multiple gallstones in a benign-appearing gallbladder. 5. Lack of intravenous and oral contrast makes detection of subtle abnormalities difficult Krishan Jim MD FACR Chest X-Ray 06/28/1770 Signed Impressions: Service Date/Time: Wednesday, June 28, 2017 09:56 - CONCLUSION: 1. No acute cardiopulmonary disease. 2. Increased subdiaphragmatic lucency on the left may reflect air in the stomach although the gastric contours are not definitely visualized. CT abdomen is scheduled and this can be further evaluated on that exam. Jay Helton MD Narrative Exam Alert, frail, thin CV: tachycardic Nonlabored breathing Abd: + rebound gen lower abdomen, mild distention, NG in place- output not recorded but is dark green A/P Assessment and Plan 76 yo F with partial SBO Bandemia worsening. Tachycardic. She has rebound on exam. I recommend operative intervention- dx lap, possible laparotomy and possible bowel resection. I discussed this in detail with her but she is not fully aware of the situation. I have a call out to her son. Kameron,Willard BONE Jun 29, 2017 09:10
[2017-06-29] MEDS ORDERED: SODIUM CHLORID 0.9% 500 ML INJ 500 ML IV ONE (09:15)
[2017-06-29 11:27] VITALS: BP 95/51; PULSE 129; RESP 18; TEMP 99.3; O2SAT 92
[2017-06-29] MEDS ORDERED: PHENYLEPH/NS 1000 MCG/10 ML SYR IV ONE (12:00)
[2017-06-29] MEDS ORDERED: GLYCOPYRROLATE 1 MG/5 ML SYRINGE IV PUSH ONE (12:00)
[2017-06-29] MEDS ORDERED: PHENYLEPHRINE HCL 10 MG/ML VIAL IV ONE (12:00)
[2017-06-29] MEDS ORDERED: ePHEDrine/NS 25 MG/5 ML SYR IV ONE (12:00)
[2017-06-29] MEDS ORDERED: ROCURONIUM INJ 50 MG/5 ML VIAL IV ONE (12:00)
[2017-06-29] MEDS ORDERED: SUCCINYLCHOLINE CHLORIDE 100 MG/5 ML SYRINGE IV PUSH ONE (12:00)
[2017-06-29] MEDS ORDERED: PROPOFOL 200 MG/20 ML AMP IV ONE (12:00)
[2017-06-29] MEDS ORDERED: NEOSTIGMINE 3 MG/3 ML SYR IV ONE (12:00)
[2017-06-29] MEDS ORDERED: LIDOCAINE HCL 1% PF 5 ML AMPULE OTHER ONE (12:00)
[2017-06-29] MEDS ORDERED: ESMOLOL HCL 100 MG/10 ML VIAL IV ONE (12:00)
[2017-06-29] MEDS ORDERED: MIDAZOLAM HCL 2 MG/2 ML VIAL IV ONE (12:00)
[2017-06-29] MEDS ORDERED: ONDANSETRON HCL 4 MG/2 ML VIAL IV PUSH ONE (12:00)
[2017-06-29] MEDS ORDERED: BUPIVACAINE/EPINEPHRINE 0.25% 50 ML VIAL ONE (12:32)
[2017-06-29] MEDS ORDERED: DO NOT ADM ANY ANTICOAGULANT DRUGS PRN (14:30)
--- NOTE | 2017-06-29 14:46 | PD.OP ---
cc: Willard Melo MD Operative Report Date of Surgery: Jun 29, 2017 Preoperative Diagnosis: (1) Small bowel obstruction (2) Abdominal pain Postoperative Diagnosis: (1) Colonic ischemia (2) Acute diffuse ischemia of small intestine (3) Mesenteric ischemia Procedure: Diagnostic laparoscopy Exploratory laparotomy Lysis of adhesions Anesthesia: DALE Surgeon: Willard Melo Vocational Counselor(s): Julito Escobedo [facility] Operation and Findings: EBL: 10 cc Operative findings: The patient had adhesions of omentum and transverse colon to the anterior abdominal wall. She had diffuse ischemia of the small bowel from the ligament of Treitz to the ileocecal valve. She had ischemia of the right and proximal transverse colon. The ischemia was not reversible the bowel was not viable. She did not have any where near 100 cm of viable small bowel. Procedure in detail: The patient was taken to the operating room and placed in supine position. Gen. endotracheal anesthesia was induced and the abdomen was prepped and draped in usual sterile fashion. Surgical timeout was performed to verify correct patient procedure and site. Local anesthetic was injected in the skin and subcutaneous tissue and left upper abdomen 5 mm incision created. The abdomen was entered directly using the 5 mm trocar with the laparoscope in place. He was insufflated 50 mmHg with CO2 gas was patient tolerated well. There was noted to be adhesions in the left mid and lower abdomen as well as in the midline from almost the falciform inferiorly. A second 5 mm trocar was placed in the epigastrium just to the right of the falciform. Attention was turned to the right lower quadrant and is noted to be exudate and ischemic appearing small bowel. Therefore I proceeded to perform a laparotomy incision from the epigastrium to near the pubis. Adhesions of omentum and transverse colon to the anterior abdominal wall in the midline with taken down sharply and with electrocautery. There were exudative adhesions between loops of small bowel and these were carefully bluntly . The small bowel was noted to be diffusely ischemic with the worst segments in the distal ileum. The small bowel was run from the ligament of Treitz to the ileocecal valve and there was no viable appearing small bowel. The right colon and proximal transverse colon also appeared ischemic. 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 Unfortunately, she does not have any option for possible recovery. Therefore I did not proceed to resect any bowel. In addition, Dr. steel evaluated the bowel and recommended closure. At this point I proceeded to close the abdomen using #1 loop PDS running suture. Skin was closed with wide skin abigail. The single remaining port site was closed with 4-0 Monocryl and Dermabond. The patient has been successfully extubated. I had a long discussion with the patient's daughter and son relating my findings and her prognosis. They have decided to make the patient DNR and this order has been placed by myself. I spoke with Dr. Menendez she will be given appropriate narcotic pain medication in keeping with the family's goal of comfort care. The NG tube will be removed. I expect she will within 12-48 hours. Willard Melo MD Jun 29, 2017 14:46
[2017-06-29] MEDS ORDERED: MORPHINE SULFATE 2 MG/ML INJ IV PUSH PRN (15:00)
[2017-06-29] MEDS: MORPHINE SULFATE 4 MG/ML INJ IV PUSH SCH ×4 (15:00→23:37)
[2017-06-29] MEDS ORDERED: *morphine SULFATE 8 MG/ML PERIprocedure ONLY ONE (15:24)
--- NOTE | 2017-06-29 16:39 | HHI.PR ---
Subjective Remarks Pt resting comfortably, family at bedside Objective Vitals Vital Signs Date Time Temp Pulse Resp B/P (MAP) Pulse Ox O2 Delivery O2 Flow Rate FiO2 06/29/17 15:25 16 94 Room Air 06/29/17 15:15 110 16 104/51 (68) 97 06/29/17 15:00 110 16 93/54 (67) 97 Nasal Cannula 2 06/29/17 14:45 110 16 98/55 (69) 97 Nasal Cannula 2 06/29/17 14:30 97.8 122 16 123/59 (80) 100 Nasal Cannula 2 06/29/17 11:27 99.3 129 18 95/51 (66) 92 06/29/17 08:08 97.9 130 19 112/55 (74) 90 06/29/17 08:00 97.9 130 19 112/55 (74) 92 06/29/17 08:00 136 06/29/17 04:00 97.6 130 20 144/58 (86) 95 06/29/17 00:00 97.4 111 18 134/64 (87) 94 06/28/17 20:13 128 06/28/17 20:00 97.4 125 18 109/55 (73) 94 06/28/17 17:06 107 15 129/78 (95) 98 Room Air 06/29/17 06/29/17 06/30/17 15:00 23:00 07:00 Intake Total 2250 ml Output Total 350 ml Balance 1900 ml Intake IV Total 550 ml Other 1700 ml Output Urine Total 300 ml Estimated Blood Loss 50 ml Result Diagram: 06/29/17 0535 06/29/17 0525 Other Results Laboratory Tests Test 06/28/17 09:40 06/28/17 11:40 06/28/17 14:40 06/28/17 16:00 White Blood Count 23.6 TH/MM3 Red Blood Count 5.63 MIL/MM3 Hemoglobin 15.9 GM/DL Hematocrit 48.2 % Mean Corpuscular Volume 85.7 FL Mean Corpuscular Hemoglobin 28.3 PG Mean Corpuscular Hemoglobin Concent 33.0 % Red Cell Distribution Width 15.0 % Platelet Count 430 TH/MM3 Mean Platelet Volume 9.3 FL Neutrophils (%) (Auto) 88.8 % Lymphocytes (%) (Auto) 6.0 % Monocytes (%) (Auto) 5.1 % Eosinophils (%) (Auto) 0.1 % Basophils (%) (Auto) 0.0 % Neutrophils # (Auto) 21.0 TH/MM3 Lymphocytes # (Auto) 1.4 TH/MM3 Monocytes # (Auto) 1.2 TH/MM3 Eosinophils # (Auto) 0.0 TH/MM3 Basophils # (Auto) 0.0 TH/MM3 CBC Comment AUTO DIFF Differential Total Cells Counted 100 Neutrophils % (Manual) 60 % Band Neutrophils % 22 % Lymphocytes % 6 % Monocytes % 11 % Neutrophils # (Manual) 19.6 TH/MM3 Metamyelocytes 1 % Differential Comment FINAL DIFF MANUAL Toxic Granulation 1+ Toxic Vacuolation PRESENT Platelet Estimate NORMAL Platelet Morphology Comment NORMAL Prothrombin Time 20.9 SEC Prothromb Time International Ratio 1.8 RATIO Activated Partial Thromboplast Time 25.8 SEC Blood Urea Nitrogen 67 MG/DL Creatinine 1.92 MG/DL Random Glucose 65 MG/DL Total Protein 7.2 GM/DL Albumin 2.8 GM/DL Calcium Level 9.1 MG/DL Alkaline Phosphatase 198 U/L Aspartate Amino Transf (AST/SGOT) 35 U/L Alanine Aminotransferase (ALT/SGPT) 29 U/L Total Bilirubin 0.6 MG/DL Sodium Level 128 MEQ/L Potassium Level 3.5 MEQ/L Chloride Level 90 MEQ/L Carbon Dioxide Level 21.8 MEQ/L Anion Gap 16 MEQ/L Estimat Glomerular Filtration Rate 25 ML/MIN Lactic Acid Level 2.1 mmol/L 0.8 mmol/L Lipase 89 U/L Urine Color YELLOW Urine Turbidity HAZY Urine pH 5.5 Urine Specific [place] 1.017 Urine Protein 30 mg/dL Urine Glucose (UA) NEG mg/dL Urine Ketones 10 mg/dL Urine Occult Blood NEG Urine Nitrite NEG Urine Bilirubin NEG Urine Urobilinogen LESS THAN 2.0 MG/DL Urine Leukocyte Esterase LARGE Urine RBC 3 /hpf Urine WBC 18 /hpf Urine Squamous Epithelial Cells 1 /hpf Urine Bacteria RARE /hpf Urine Hyaline Casts 3 /lpf Microscopic Urinalysis Comment CULTURE INDICATED Test 06/29/17 05:25 06/29/17 05:35 Blood Urea Nitrogen 69 MG/DL Creatinine 1.77 MG/DL Random Glucose 51 MG/DL Calcium Level 7.9 MG/DL Magnesium Level 2.0 MG/DL Sodium Level 136 MEQ/L Potassium Level 3.7 MEQ/L Chloride Level 105 MEQ/L Carbon Dioxide Level 16.5 MEQ/L Anion Gap 15 MEQ/L Estimat Glomerular Filtration Rate 28 ML/MIN White Blood Count 12.3 TH/MM3 Red Blood Count 4.62 MIL/MM3 Hemoglobin 13.1 GM/DL Hematocrit 40.1 % Mean Corpuscular Volume 86.8 FL Mean Corpuscular Hemoglobin 28.3 PG Mean Corpuscular Hemoglobin Concent 32.6 % Red Cell Distribution Width 15.1 % Platelet Count 298 TH/MM3 Mean Platelet Volume 9.2 FL CBC Comment AUTO DIFF Differential Total Cells Counted 100 Neutrophils % (Manual) 64 % Band Neutrophils % 30 % Lymphocytes % 4 % Monocytes % 1 % Neutrophils # (Manual) 11.7 TH/MM3 Metamyelocytes 1 % Differential Comment FINAL DIFF MANUAL Platelet Estimate NORMAL Platelet Morphology Comment NORMAL Ovalocytes 1+ Acanthocytes 1+ Keratocytes 1+ Imaging Last Impressions Abdomen/Pelvis CT 06/28/17 1322 Signed Impressions: Service Date/Time: Wednesday, June 28, 2017 14:00 - CONCLUSION: 1. Abnormal small bowel gas pattern. This could be a partial obstruction. 2. Extensive vascular calcifications are noted. 3. There is no free air. 4. Multiple gallstones in a benign-appearing gallbladder. 5. Lack of intravenous and oral contrast makes detection of subtle abnormalities difficult Krishan Jim MD FACR Chest X-Ray 06/28/17 0928 Signed Impressions: Service Date/Time: Wednesday, June 28, 2017 09:56 - CONCLUSION: 1. No acute cardiopulmonary disease. 2. Increased subdiaphragmatic lucency on the left may reflect air in the stomach although the gastric contours are not definitely visualized. CT abdomen is scheduled and this can be further evaluated on that exam. Jay Helton MD Abdomen X-Ray 06/28/17 0000 Signed Impressions: Service Date/Time: Wednesday, June 28, 2017 20:15 - CONCLUSION: Nasogastric tube in the stomach. No obstruction identified 1. Perez Arita MD Objective Remarks General: resting comfortable Chest: CTA Cardiac: Regular, tachy A/P Problem List: (1) Abdominal pain ICD Codes: R10.9 - Unspecified abdominal pain Status: Acute Plan: - Pt is a 76 y/o female with GERD, depression, and ADHD who presented to the ED at [facility] on 06/28/17 with complaints of nausea, vomiting, diarrhea as well as lower abdominal pain that began last 06/23/17. Pt has had poor po intake over the last week as well. - Pt was reportedly very agitated in the ED and was given Ativan. Currently pt very lethargic and in restraints. Pt unable to provide any history. - Attempted to call the pts daughter and son at the number sin the chart but no answer at all the numbers provided. - Labs in the ED noted elevated WBC count 23.6, elevated Hgb 15.9 and Hct 48.2 likely some degree of hemoconcentration. She is notably dehydrated with YISSEL and an elevated Lactic acid. - Pt was given 2L of IVF in the ED as she was noted to be hypotensive and her BP has improved. - She was also given IV Flagyl, Azactam, and Vancomycin in the ED. - Noncontrasted CT Abd/pelvis in the ED noted abnormal small bowel gas pattern, ?partial obstruction, extensive vascular calcifications, no free air, and multiple gallstones in a benign appearing gallbladder. Pts LFTs were for the most part WNL other than AlkPhos was elevated at 198, Lipase was 89. - Pt had significant RLQ tenderness on examination in the ED. Reviewed the CT with Dr. Devlin and there was no specific evidence indicating appendicitis. - Appreciate General Surgery consultation - Pt had exploratory lap on 06/29 which revealed the patient had adhesions of omentum and transverse colon to the anterior abdominal wall. She had diffuse ischemia of the small bowel from the ligament of Treitz to the ileocecal valve. She had ischemia of the right and proximal transverse colon. The ischemia was not reversible the bowel was not viable. She did not have any where near 100 cm of viable small bowel. - Surgical findings were discussed between Dr. Melo and the pts son and daughter , pts condition is terminal and will likely only survive 12-48hrs per surgery. She was made a DNR - NGT was removed. - Comfort care measures only - Zofran PRN - Supportive care (2) Nausea vomiting and diarrhea ICD Codes: R11.2 - Nausea with vomiting, unspecified; R19.7 - Diarrhea, unspecified Status: Acute Plan: - See above. (3) Dehydration ICD Codes: E86.0 - Dehydration Status: Acute Plan: - See above (4) YISSEL (acute kidney injury) ICD Codes: N17.9 - Acute kidney failure, unspecified Status: Acute Plan: - See above. Assessment and Plan Patient examined. Assessment and plan formulated with Geneva Rodriguez PA-C. I agree with the above. Geneva Rodriguez Jun 29, 2017 16:39 Zachary Menendez DO Jul 03, 2017 23:38
[2017-06-30] VITALS: BP 73/49; PULSE 119; RESP 24; TEMP 97.7; O2SAT 93
[2017-06-30] MEDS: MORPHINE SULFATE 4 MG/ML INJ IV PUSH SCH ×2 (03:56→06:30)
--- NOTE | 2017-06-30 08:19 | HHI.DS ---
Discharge Summary Admission Date Jun 29, 2017 at 10:01 Discharge Date: Jun 30, 2017 Admitting Diagnosis Sepsis, Small bowel obstruction (1) Abdominal pain ICD Codes: R10.9 - Unspecified abdominal pain Status: Acute (2) Nausea vomiting and diarrhea ICD Codes: R11.2 - Nausea with vomiting, unspecified; R19.7 - Diarrhea, unspecified Status: Acute (3) Dehydration ICD Codes: E86.0 - Dehydration Status: Acute (4) YISSEL (acute kidney injury) ICD Codes: N17.9 - Acute kidney failure, unspecified Status: Acute Consultants Dr. Melo Procedures Pt had exploratory lap on 06/29 which revealed the patient had adhesions of omentum and transverse colon to the anterior abdominal wall. She had diffuse ischemia of the small bowel from the ligament of Treitz to the ileocecal valve. She had ischemia of the right and proximal transverse colon. The ischemia was not reversible the bowel was not viable. She did not have any where near 100 cm of viable small bowel. Brief History Ms. Rose is a 76 y/o female with GERD, depression, and ADHD who [place] [facility] [place] with complaints of nausea, vomiting, diarrhea as well as lower abdominal pain that began last 06/23/17. Patient reports that for the past week, she has been unable to eat or drink much due to the nausea/vomiting, and has had progressive weakness. Patient reportedly contacted her primary care doctor, Dr. Jessica Vaughn and was instructed to go for outpatient lab work and CT of the abdomen and pelvis with contrast but pt has been unable to have these outpatient studies done yet. Per the ED report , the patient's family reportedly went to check up on patient last night and she appeared to be frail and had appeared to have lost a lot of weight. Daughter did attempt to give patient some Pedialyte which she was able to keep down a small amount. Patient does live at home by herself, family reported concern as patient will apparently down play her symptoms and not give full history about how she is feeling. Pt reportedly very agitated in the ED and was given Ativan. Currently pt very lethargic and in restraints. Pt unable to provide any history. Attempted to call the pts daughter and son at the number sin the chart but no answer. Labs in the ED noted elevated WBC count 23.6, elevated Hgb 15.9 and Hct 48.2 likely some degree of hemoconcentration. She is notably dehydrated with YISSEL and an elevated Lactic acid. Pt was given 2L of IVF in the ED as she was noted to be hypotensive. She was also given IV Flagyl, Azactam, and Vancomycin in the ED. Noncontrasted CT Abd/pelvis in the ED noted abnormal small bowel gas pattern, ?partial obstruction, extensive vascular calcifications, no free air, and multiple gallstones in a benign appearing gallbladder. Pts LFTs were for the most part WNL other than AlkPhos was elevated at 198, Lipase was 89. CBC/BMP: 06/29/17 0535 06/29/17 0525 Significant Findings Laboratory Tests Test 06/28/17 09:40 06/28/17 11:40 06/28/17 14:40 06/28/17 16:00 White Blood Count 23.6 TH/MM3 (4.0-11.0) Red Blood Count 5.63 MIL/MM3 (4.00-5.30) Hemoglobin 15.9 GM/DL (11.6-15.3) Hematocrit 48.2 % (35.0-46.0) Neutrophils (%) (Auto) 88.8 % (16.0-70.0) Lymphocytes (%) (Auto) 6.0 % (9.0-44.0) Neutrophils # (Auto) 21.0 TH/MM3 (1.8-7.7) Monocytes # (Auto) 1.2 TH/MM3 (0-0.9) Band Neutrophils % 22 % (0-6) Lymphocytes % 6 % (9-44) Monocytes % 11 % (0-8) Neutrophils # (Manual) 19.6 TH/MM3 (1.8-7.7) Toxic Granulation 1+ (NORMAL) Toxic Vacuolation PRESENT (NONE SEEN) Prothrombin Time 20.9 SEC (9.8-11.6) Blood Urea Nitrogen 67 MG/DL (7-18) Creatinine 1.92 MG/DL (0.50-1.00) Random Glucose 65 MG/DL (74-106) Albumin 2.8 GM/DL (3.4-5.0) Alkaline Phosphatase 198 U/L (45-117) Sodium Level 128 MEQ/L (136-145) Chloride Level 90 MEQ/L (98-107) Anion Gap 16 MEQ/L (5-15) Estimat Glomerular Filtration Rate 25 ML/MIN (>89) Lactic Acid Level 2.1 mmol/L (0.4-2.0) Urine Turbidity HAZY (CLEAR) Urine Protein 30 mg/dL (NEG-TRACE) Urine Ketones 10 mg/dL (NEG) Urine Leukocyte Esterase LARGE (NEG) Urine WBC 18 /hpf (0-5) Urine Bacteria RARE /hpf (NONE) Test 06/29/17 05:25 06/29/17 05:35 Blood Urea Nitrogen 69 MG/DL (7-18) Creatinine 1.77 MG/DL (0.50-1.00) Random Glucose 51 MG/DL (74-106) Calcium Level 7.9 MG/DL (8.5-10.1) Carbon Dioxide Level 16.5 MEQ/L (21.0-32.0) Estimat Glomerular Filtration Rate 28 ML/MIN (>89) White Blood Count 12.3 TH/MM3 (4.0-11.0) Band Neutrophils % 30 % (0-6) Lymphocytes % 4 % (9-44) Neutrophils # (Manual) 11.7 TH/MM3 (1.8-7.7) Ovalocytes 1+ (NORMAL) Acanthocytes 1+ (NORMAL) Keratocytes 1+ (NORMAL) Imaging Last Impressions Abdomen/Pelvis CT 06/28/17 1322 Signed Impressions: Service Date/Time: Wednesday, June 28, 2017 14:00 - CONCLUSION: 1. Abnormal small bowel gas pattern. This could be a partial obstruction. 2. Extensive vascular calcifications are noted. 3. There is no free air. 4. Multiple gallstones in a benign-appearing gallbladder. 5. Lack of intravenous and oral contrast makes detection of subtle abnormalities difficult Krishan Jim MD FACR Chest X-Ray 06/28/17 0928 Signed Impressions: Service Date/Time: Wednesday, June 28, 2017 09:56 - CONCLUSION: 1. No acute cardiopulmonary disease. 2. Increased subdiaphragmatic lucency on the left may reflect air in the stomach although the gastric contours are not definitely visualized. CT abdomen is scheduled and this can be further evaluated on that exam. Jay Helton MD Abdomen X-Ray 06/28/17 0000 Signed Impressions: Service Date/Time: Wednesday, June 28, 2017 20:15 - CONCLUSION: Nasogastric tube in the stomach. No obstruction identified 1. Perez Arita MD Hospital Course Abdominal pain- ischemic bowel - Pt is a 76 y/o female with GERD, depression, and ADHD who [place] [facility] [place] with complaints of nausea, vomiting, diarrhea as well as lower abdominal pain that began last 06/23/17. Pt has had poor po intake over the last week as well. - Pt was reportedly very agitated in the ED and was given Ativan. Currently pt very lethargic and in restraints. Pt unable to provide any history. - Attempted to call the pts daughter and son at the number sin the chart but no answer at all the numbers provided. - Labs in the ED noted elevated WBC count 23.6, elevated Hgb 15.9 and Hct 48.2 likely some degree of hemoconcentration. She is notably dehydrated with YISSEL and an elevated Lactic acid. - Pt was given 2L of IVF in the ED as she was noted to be hypotensive and her BP has improved. - She was also given IV Flagyl, Azactam, and Vancomycin in the ED. - Noncontrasted CT Abd/pelvis in the ED noted abnormal small bowel gas pattern, ?partial obstruction, extensive vascular calcifications, no free air, and multiple gallstones in a benign appearing gallbladder. Pts LFTs were for the most part WNL other than AlkPhos was elevated at 198, Lipase was 89. - Pt had significant RLQ tenderness on examination in the ED. Reviewed the CT with Dr. Devlin and there was no specific evidence indicating appendicitis. - Appreciate General Surgery consultation - Pt had exploratory lap on 06/29 which revealed the patient had adhesions of omentum and transverse colon to the anterior abdominal wall. She had diffuse ischemia of the small bowel from the ligament of Treitz to the ileocecal valve. She had ischemia of the right and proximal transverse colon. The ischemia was not reversible the bowel was not viable. She did not have any where near 100 cm of viable small bowel. - Surgical findings were discussed between Dr. Melo and the pts son and daughter , pts condition is terminal and will likely only survive 12-48hrs per surgery. She was made a DNR - NGT was removed. - Comfort care measures only - Patient 06/30/17 at 0715 Nausea vomiting and diarrhea - See above. Dehydration - See above YISSEL (acute kidney injury) - See above. Pt Condition on Discharge: Deteriorating Discharge Instructions Additional Information Patient examined. Assessment and plan formulated with Kayla Alicea PA-C. I agree with the above. Kayla Alicea Jun 30, 2017 08:19 Zachary Menendez DO Jul 03, 2017 23:40
== END 2017-06-30 08:54 | disposition expired | DRG 335 ==
LOC: NEPC 09:04 → NEDA 15:16 → INTOOBSV 15:16 → N04A 18:39 → OBSVTOIN 06-29 10:01
PROVIDERS: ADMIT Hospitalist; ATTEND Hospitalist
PROC: 0DNL0ZZ Release Transverse Colon, Open Approach (ICD-10-PCS; principal; 2017-06-29 12:50)
PROC: 0WJP4ZZ Inspection of Gastrointestinal Tract, Percutaneous Endoscopic Approach (ICD-10-PCS; 2017-06-29 12:50)
DX: K55.9 Vascular disorder of intestine, unspecified (principal); A41.9 Sepsis, unspecified organism; N17.9 Acute kidney failure, unspecified; K55.049 Acute infarction of large intestine, extent unspecified; N39.0 Urinary tract infection, site not specified; I07.1 Rheumatic tricuspid insufficiency; E86.0 Dehydration; I35.0 Nonrheumatic aortic (valve) stenosis; K21.9 Gastro-esophageal reflux disease without esophagitis; K66.0 Peritoneal adhesions (postprocedural) (postinfection); I10 Essential (primary) hypertension; Z51.5 Encounter for palliative care; Z66 Do not resuscitate; Z78.1 Physical restraint status; F90.9 Attention-deficit hyperactivity disorder, unspecified type; F32.9 Major depressive disorder, single episode, unspecified; Z85.42 Personal history of malignant neoplasm of other parts of uterus; Z86.010 Personal history of colon polyps; Z90.710 Acquired absence of both cervix and uterus
CPT/HCPCS: 71010; 74000; 74176; 76937; 80048; 80053; 81001; 83605; 83690; 83735; 85007; 85027; 85610; 85730; 86850; 86900; 86901; 87040; 87086; 93005; 96361; 96365; 96366; 96367; 96368; 96375; C9113; G0378; J0330; J2060; J2250; J2270; J2370; J2405; J2543; J2710; J3010; J3370; J3480; J7030; J7040; J7050